=== PATIENT | female | born 1990 | race Asian ===

== ENCOUNTER 2018-05-31 22:30 | Emergency (ER) | payer MEDICAID ==
[~2018-05-31] VITALS: Ht 160 cm; Wt 54.9 kg
[2018-05-31 22:39] VITALS: BP_SYST 119
[2018-05-31] MEDS ORDERED: LORazepam 1 MG TABLET PO ONE (23:00)
[2018-05-31 23:38] LABS: LYMPHOCYTES # (AUTO) 1.5 K/uL (1.0-5.5); MONOCYTES # (AUTO) 0.4 K/uL (0.0-1.0)
[2018-05-31 23:43] LABS: CALCIUM 9.5 mg/dL (8.4-11.0); CREATININE 0.82 mg/dL (0.55-1.30); POTASSIUM 3.5 mmol/L (3.5-5.1)
[2018-05-31 23:48] LABS: BASOPHILS % (AUTO) 0.5 % (0.0-2.0); EOSINOPHILS % (AUTO) 0.3 % (0.0-4.0); HEMATOCRIT 45.8 % (36-48); HEMOGLOBIN 15.4 g/dL (12.0-16.0); MEAN CORPUSCULAR HEMOGLOBIN 31 pg (27-31); MEAN CORPUSCULAR HGB CONC 34 % (32-36); MEAN CORPUSCULAR VOLUME 93 fL (79.0-98.0); NEUTROPHILS # (AUTO) 7.5 K/uL (1.8-7.7); NEUTROPHILS % (AUTO) 79.2 % (40.0-70.0); PLATELET COUNT (AUTO) 245 K/uL (130-430); RED BLOOD CELL COUNT(AUTO) 4.92 MIL/uL (4.2-6.2); RED CELL DISTRIBUTION WIDTH 13.3 % (9.0-15.0); WHITE BLOOD COUNT (AUTO) 9.4 K/uL (4.8-10.8)
[2018-05-31 23:59] LABS: THYROID STIMULATING HORMONE 2.53 uIu/mL (0.36-3.74)
[2018-06-01 00:22] VITALS: BP_SYST 123
== END 2018-06-01 00:22 | disposition home or self-care (01) ==
LOC: SED 22:30
DX: R00.2 Palpitations (principal); R42 Dizziness and giddiness; F17.200 Nicotine dependence, unspecified, uncomplicated; Z71.6 Tobacco abuse counseling
CPT/HCPCS: 36415; 80048; 81025; 84443-TC; 84484; 85025; 85379; 93005; 99285